=== PATIENT | male | born 1990 | race African-American/Black ===

== ENCOUNTER 2018-06-14 07:30 | Emergency (ER) | payer MEDICAID ==
[~2018-06-14] VITALS: Ht 185.4 cm; Wt 104.5 kg
[2018-06-14 07:51] LABS: BASOPHILS # (AUTO) 0.03 x10^3/uL (0-0.1); BASOPHILS % (AUTO) 0 % (0-1); EOSINOPHILS # (AUTO) 0.23 x10^3/uL (0-0.4); EOSINOPHILS % (AUTO) 3 % (1-7); LYMPHOCYTES % (AUTO) 16 % (22-44); MD NO; MEAN CORPUSCULAR HEMOGLOBIN 29.4 pg (27.5-34.5); MEAN CORPUSCULAR HGB CONC 33.2 g/dL (33.2-36.2); MEAN CORPUSCULAR VOLUME 88.5 fL (81-97); MEAN PLATELET VOLUME 8.4 fL (7.4-10.4); MONOCYTES # (AUTO) 0.54 x10^3/uL (0.2-0.8); MONOCYTES % (AUTO) 6 % (2-9); NEUTROPHILS # (AUTO) 6.85 x10^3/uL (1.8-6.8); NEUTROPHILS % (AUTO) 76 % (42-75); PLATELET COUNT 332 x10^3/uL (130-400); RED BLOOD COUNT 4.99 x10^6/uL (4.38-5.82); RED CELL DISTRIBUTION WIDTH 13.4 % (9.4-14.8)
[2018-06-14] MEDS ORDERED: FAMOTIDINE 20 MG/2 ML IVP ONE (08:00)
[2018-06-14] MEDS ORDERED: ONDANSETRON 2MG/ML, 2ML IVPush ONE (08:00)
[2018-06-14] MEDS ORDERED: SODIUM CHLORIDE 0.9% 1,000ML IVBOLUS ONE (08:00)
[2018-06-14] MEDS ORDERED: FAMOTIDINE 20 MG/2 ML ONE (08:01)
[2018-06-14] MEDS ORDERED: MORPHINE SULFATE 4 MG/ML, 1ML ONE ×2 (08:01→09:32)
[2018-06-14 08:02] LABS: ALANINE AMINOTRANSFERASE 47 U/L (12-78); ALBUMIN 3.8 g/dL (3.4-5.0); ANION GAP 8 mmol/L (5-15); CALCIUM 8.8 mg/dL (8.5-10.1); CHLORIDE 110 mmol/L (98-107); CREATININE 0.83 mg/dL (0.7-1.3)
[2018-06-14 08:04] LABS: ALKALINE PHOSPHATASE 77 U/L (45-117); BILIRUBIN,TOTAL 0.3 mg/dL (0.2-1.0); TOTAL PROTEIN 7.2 g/dL (6.4-8.2)
[2018-06-14] MEDS: MORPHINE SULFATE 4 MG/ML, 1ML IVPush PRN ×2 (08:04→09:33)
[2018-06-14] MEDS ORDERED: ONDANSETRON 2MG/ML, 2ML ONE (08:12)
[2018-06-14 08:44] LABS: CLOSTRIDIUM DIFFICILE ANTIGEN NEGATIVE; CLOSTRIDIUM DIFFICILE TOXIN NEGATIVE (Negative)
[2018-06-14 09:35] VITALS: BP 122/61
--- NOTE | 2018-06-14 09:35 | NUR ---
URINE COLLECTED AND SENT TO LAB. PT MED NOTED FOR ABD PAIN 11/29. PT AWARE OF PLAN FOR ABD CT. CALL LIGHT W/I REACH
[2018-06-14 09:38] LABS: MICROSCOPIC NOT IND
[2018-06-14 09:42] LABS: CULTURE INDICATED? NO
[2018-06-14] MEDS ORDERED: OMNIPAQUE 350 MG/ML, 100ML BOTTLE ONE (09:57)
--- NOTE | 2018-06-14 11:31 | NUR ---
Patient/Caregiver given discharge instructions and they have confirmed that they understand the instructions. Patient ambulatory with steady gait.
== END 2018-06-14 11:33 | disposition home or self-care (01) ==
LOC: ED 11:15
DX: A08.4 Viral intestinal infection, unspecified (principal)
CPT/HCPCS: 36415; 74177; 80053; 81003; 83690; 85025; 87324; 89055; 96361; 96374; 96375; 96376; 99284; J2405; J3490; J7030; Q9967

== ENCOUNTER 2018-07-03 09:30 | Emergency (ER) | payer MEDICAID ==
[~2018-07-03] VITALS: Ht 185.4 cm; Wt 97.6 kg
[2018-07-03 09:43] VITALS: BP 103/58
[2018-07-03] MEDS ORDERED: HYDROcodone/APAP 5/325 TABLET PO ONE (10:00)
[2018-07-03] MEDS ORDERED: HYDROcodone/APAP 5/325 TABLET ONE (10:06)
--- NOTE | 2018-07-03 11:15 | NUR ---
Patient/Caregiver given discharge instructions and they have confirmed that they understand the instructions. Patient ambulatory with steady gait.
== END 2018-07-03 11:18 | disposition home or self-care (01) ==
LOC: ED 10:27
DX: K08.89 Other specified disorders of teeth and supporting structures (principal); F17.200 Nicotine dependence, unspecified, uncomplicated
CPT/HCPCS: 99283

== ENCOUNTER 2018-08-14 07:13 | Emergency (ER) | payer MEDICAID ==
[~2018-08-14] VITALS: Ht 188 cm; Wt 97.4 kg
[2018-08-14 07:16] VITALS: BP 140/89
[2018-08-14] MEDS ORDERED: IBUPROFEN 800 MG TABLET PO ONE (07:30)
[2018-08-14] MEDS ORDERED: HYDROcodone/APAP 5/325 TABLET PO ONE (07:30)
[2018-08-14] MEDS ORDERED: IBUPROFEN 800 MG TABLET ONE (07:54)
[2018-08-14] MEDS ORDERED: HYDROcodone/APAP 5/325 TABLET ONE (07:54)
--- NOTE | 2018-08-14 08:05 | NUR ---
Patient/Caregiver given discharge instructions and they have confirmed that they understand the instructions. Patient ambulatory with steady gait.
== END 2018-08-14 08:06 | disposition home or self-care (01) ==
LOC: ED 07:40
DX: K02.9 Dental caries, unspecified (principal)
CPT/HCPCS: 99283

== ENCOUNTER 2018-10-18 04:10 | Emergency (ER) | payer MEDICAID ==
[~2018-10-18] VITALS: Ht 182.9 cm; Wt 97.9 kg
[2018-10-18] MEDS ORDERED: DIPHENHYDRAMINE 50 MG/ML, 1ML ONE (04:50)
[2018-10-18] MEDS ORDERED: PROCHLORPERAZINE 5 MG/ML, 2ML ONE (04:50)
[2018-10-18] MEDS ORDERED: SODIUM CHLORIDE FLUSH 10ML SYR IVF ONE (05:00)
[2018-10-18] MEDS ORDERED: SODIUM CHLORIDE 0.9% 1,000ML IVBOLUS ONE (05:00)
[2018-10-18] MEDS ORDERED: DIPHENHYDRAMINE 50 MG/ML, 1ML IVPush ONE (05:00)
[2018-10-18] MEDS ORDERED: PROCHLORPERAZINE 5 MG/ML, 2ML IVPush ONE (05:00)
--- NOTE | 2018-10-18 05:10 | NUR ---
CARE DELAYED DUE TO PT BEING DIFFICULT TO OBTAIN IV ACCESS ON. LAB AT [facility] WITH MULTIPLE ATTEMPTS WELL. PROVIDER AWARE.
--- NOTE | 2018-10-18 05:21 | NUR ---
IV ESTABLISHED VIA US. 18 G IN LEFT UPPER ARM. PT MEDICATED PER EMAR. 5 RIGHTS ADDRESSED
[2018-10-18 05:44] LABS: BASOPHILS # (AUTO) 0.04 x10^3/uL (0-0.1); BASOPHILS % (AUTO) 0 % (0-1); EOSINOPHILS # (AUTO) 0.18 x10^3/uL (0-0.4); EOSINOPHILS % (AUTO) 2 % (1-7); LYMPHOCYTES # (AUTO) 2.33 x10^3/uL (1-3.4); LYMPHOCYTES % (AUTO) 25 % (22-44); MD NO; MEAN CORPUSCULAR HEMOGLOBIN 30.4 pg (27.5-34.5); MEAN CORPUSCULAR HGB CONC 33.5 g/dL (33.2-36.2); MEAN CORPUSCULAR VOLUME 90.6 fL (81-97); MEAN PLATELET VOLUME 8.5 fL (7.4-10.4); MONOCYTES # (AUTO) 0.53 x10^3/uL (0.2-0.8); MONOCYTES % (AUTO) 6 % (2-9); NEUTROPHILS # (AUTO) 6.42 x10^3/uL (1.8-6.8); NEUTROPHILS % (AUTO) 68 % (42-75); PLATELET COUNT 333 x10^3/uL (130-400); RED BLOOD COUNT 4.83 x10^6/uL (4.38-5.82); RED CELL DISTRIBUTION WIDTH 13.8 % (9.4-14.8)
--- NOTE | 2018-10-18 05:45 | NUR ---
PT BACK FROM CT
[2018-10-18 05:50] LABS: ANION GAP 10 mmol/L (5-15); CALCIUM 8.4 mg/dL (8.5-10.1); CHLORIDE 112 mmol/L (98-107)
[2018-10-18 05:54] LABS: ALANINE AMINOTRANSFERASE 56 U/L (12-78); ALKALINE PHOSPHATASE 78 U/L (45-117); BILIRUBIN,TOTAL 0.7 mg/dL (0.2-1.0); CREATININE 0.84 mg/dL (0.7-1.3); TOTAL PROTEIN 7.1 g/dL (6.4-8.2)
--- NOTE | 2018-10-18 06:17 | NUR ---
PT SLEEPING. RESPIRATIONS EVEN AND UNLABORED. VITALS STABLE. CT READ BACK. CHART UP FOR RECHECK.
[2018-10-18] MEDS ORDERED: KETOROLAC 30 MG/1 ML IVPush ONE (06:30)
[2018-10-18] MEDS ORDERED: HYDROmorphone 1 MG/ML, 1ML INJ IVPush ONE (07:00)
--- NOTE | 2018-10-18 07:01 | NUR ---
BEDSIDE REPORT TO FAVIAN RN.
--- NOTE | 2018-10-18 07:04 | NUR ---
PT. IS A & O X 4, RESTING SIDE LYING ON THE STRETCHER. PT. HAS THE PULSE OX AND BP CUFF IN PLACE. PT. HAS NO CONCERNS AT THIS TIME. SIDERAILS REMAIN UP X 2 WITH THE CALL LIGHT IN PLACE. VSS.
[2018-10-18] MEDS ORDERED: KETOROLAC 30 MG/1 ML ONE (07:34)
[2018-10-18] MEDS ORDERED: HYDROmorphone 2 MG/ML, 1ML ONE (07:34)
--- NOTE | 2018-10-18 08:00 | NUR ---
PT. WAS MEDICATED FOR PAIN. PT. IS RESTING AT THIS TIME. PULSE OX AND BP CUFF REMAIN IN PLACE.
--- NOTE | 2018-10-18 09:50 | NUR ---
PT. STATES RELIEF FROM PAIN MEDS. PT. WAS GIVEN DISCHARGE INSTRUCTIONS AND SCRIPTS WITH UNDERSTANDING VERBALIZED ALONG WITH WILLINGNESS TO COMPLY. PT.'S IV WAS DCD',CATH TIP INTACT. PRESSURE HELD WITH HEMOSTASIS ACHIEVED. PT. WAS AMBULATORY TO THE DISCHARGE DESK. VSS.
[2018-10-18 09:54] VITALS: BP 116/62
== END 2018-10-18 09:57 | disposition home or self-care (01) ==
LOC: ED 09:51
DX: R51 Headache (principal); J45.909 Unspecified asthma, uncomplicated
CPT/HCPCS: 36415; 70450; 80053; 85025; 96361; 96374; 96375; 99284; J0780; J1170; J1200; J1885; J7030

== ENCOUNTER 2018-10-19 06:26 | Emergency (ER) | payer MEDICAID ==
[~2018-10-19] VITALS: Ht 185.4 cm; Wt 98.5 kg
[2018-10-19] MEDS ORDERED: ONDANSETRON 2MG/ML, 2ML IVPush ONE (07:00)
[2018-10-19] MEDS ORDERED: SODIUM CHLORIDE FLUSH 10ML SYR IVF ONE (07:00)
[2018-10-19] MEDS ORDERED: HYDROmorphone 2 MG/ML, 1ML ONE ×2 (07:22→10:36)
[2018-10-19] MEDS ORDERED: ONDANSETRON 2MG/ML, 2ML ONE (07:23)
--- NOTE | 2018-10-19 07:24 | NUR ---
pt reports ARMAS, n/v, diarrhea for 2 day. pain 10/10 in his head and stomach.
[2018-10-19] MEDS: HYDROmorphone 2 MG/ML, 1ML IVPush PRN ×2 (07:27→10:40)
[2018-10-19 07:39] LABS: BASOPHILS # (AUTO) 0.02 x10^3/uL (0-0.1); BASOPHILS % (AUTO) 0 % (0-1); EOSINOPHILS # (AUTO) 0.13 x10^3/uL (0-0.4); EOSINOPHILS % (AUTO) 1 % (1-7); LYMPHOCYTES % (AUTO) 14 % (22-44); MD NO; MEAN CORPUSCULAR HEMOGLOBIN 29.7 pg (27.5-34.5); MEAN CORPUSCULAR HGB CONC 32.8 g/dL (33.2-36.2); MEAN CORPUSCULAR VOLUME 90.7 fL (81-97); MEAN PLATELET VOLUME 8.1 fL (7.4-10.4); MONOCYTES # (AUTO) 0.48 x10^3/uL (0.2-0.8); MONOCYTES % (AUTO) 5 % (2-9); NEUTROPHILS % (AUTO) 79 % (42-75); PLATELET COUNT 331 x10^3/uL (130-400); RED BLOOD COUNT 4.71 x10^6/uL (4.38-5.82); RED CELL DISTRIBUTION WIDTH 13.7 % (9.4-14.8)
[2018-10-19 07:52] LABS: ALANINE AMINOTRANSFERASE 67 U/L (12-78); ANION GAP 8 mmol/L (5-15); CALCIUM 8.8 mg/dL (8.5-10.1); CHLORIDE 107 mmol/L (98-107); CREATININE 0.83 mg/dL (0.7-1.3)
[2018-10-19 07:54] LABS: ALKALINE PHOSPHATASE 77 U/L (45-117); BILIRUBIN,TOTAL 0.8 mg/dL (0.2-1.0); TOTAL PROTEIN 7.2 g/dL (6.4-8.2)
--- NOTE | 2018-10-19 08:05 | NUR ---
pt reports pain has improved in is head to 6/10. pt provided a stool and urine sample. pt resting on gurney. blanket provided. no other requests at this time.
[2018-10-19 08:13] VITALS: BP_DIAS 71
[2018-10-19 08:34] LABS: MICROSCOPIC INDICATED
[2018-10-19 08:50] LABS: CULTURE INDICATED? YES
[2018-10-19 09:05] LABS: CLOSTRIDIUM DIFFICILE ANTIGEN NEGATIVE; CLOSTRIDIUM DIFFICILE TOXIN NEGATIVE (Negative)
--- NOTE | 2018-10-19 10:10 | NUR ---
BS REPORT FROM [facility], ASSUME CARE OF PT AT THIS TIME. CDIFF NEG, ISOLATION CART REMOVED. ERP IN TO REASSESS/DISPO.
[2018-10-19] MEDS ORDERED: HYDROcodone/APAP 5/325 TABLET PO ONE (10:30)
[2018-10-19] MEDS ORDERED: HYDROcodone/APAP 5/325 TABLET ONE (10:35)
--- NOTE | 2018-10-19 10:44 | NUR ---
PT MEDICATED PER ERP ORDER PRIOR TO DISCHARGE FOR 11/29. PT WITH RIDE HOME, AMBULATES OUT WITH STEADY GAIT.
[2018-10-19 10:56] VITALS: BP_SYST 113
== END 2018-10-19 10:58 | disposition home or self-care (01) ==
LOC: ED 08:23
DX: R31.29 Other microscopic hematuria (principal); K52.9 Noninfective gastroenteritis and colitis, unspecified
CPT/HCPCS: 36415; 80053; 81001; 85025; 87086; 87324; 89055; 96374; 96375; 96376; 99283; J1170; J2405

== ENCOUNTER 2018-11-23 18:08 | Emergency (ER) | payer MEDICAID ==
[~2018-11-23] VITALS: Ht 188 cm; Wt 97.0 kg
[2018-11-23 18:23] VITALS: BP 132/54
[2018-11-23 18:46] LABS: MEAN CORPUSCULAR HEMOGLOBIN 30.3 pg (27.5-34.5); MEAN CORPUSCULAR HGB CONC 33.2 g/dL (33.2-36.2); MEAN CORPUSCULAR VOLUME 91.4 fL (81-97); MEAN PLATELET VOLUME 8.1 fL (7.4-10.4); PLATELET COUNT 344 x10^3/uL (130-400); RED BLOOD COUNT 4.86 x10^6/uL (4.38-5.82); RED CELL DISTRIBUTION WIDTH 13.6 % (9.4-14.8)
[2018-11-23 18:57] LABS: ALANINE AMINOTRANSFERASE 41 U/L (12-78); ALBUMIN 4.2 g/dL (3.4-5.0); ANION GAP 12 mmol/L (5-15); CALCIUM 8.8 mg/dL (8.5-10.1); CHLORIDE 108 mmol/L (98-107); CREATININE 0.94 mg/dL (0.7-1.3)
[2018-11-23 19:02] LABS: ALKALINE PHOSPHATASE 87 U/L (45-117); BILIRUBIN,TOTAL 0.7 mg/dL (0.2-1.0); TOTAL PROTEIN 7.9 g/dL (6.4-8.2); TROPONIN I < 0.015 ng/mL (0.000-0.045)
[2018-11-23 19:06] LABS: BASOPHILS # (AUTO) 0.04 x10^3/uL (0-0.1); BASOPHILS % (AUTO) 0 % (0-1); EOSINOPHILS # (AUTO) 0.12 x10^3/uL (0-0.4); EOSINOPHILS % (AUTO) 1 % (1-7); LYMPHOCYTES % (AUTO) 20 % (22-44); MD SCAN; MONOCYTES # (AUTO) 0.45 x10^3/uL (0.2-0.8); MONOCYTES % (AUTO) 5 % (2-9); NEUTROPHILS # (AUTO) 7.25 x10^3/uL (1.8-6.8); NEUTROPHILS % (AUTO) 74 % (42-75)
--- NOTE | 2018-11-23 19:36 | NUR ---
CALLED FROM [facility], NO ANSWER X1
--- NOTE | 2018-11-23 19:46 | NUR ---
NAX2
== END 2018-11-23 19:59 | disposition left against medical advice (07) ==
LOC: ED 19:48
DX: R07.9 Chest pain, unspecified (principal); R11.10 Vomiting, unspecified; R10.10 Upper abdominal pain, unspecified
CPT/HCPCS: 36415; 71045; 80053; 83690; 84484; 85025; 93005; 99284

== ENCOUNTER 2019-04-14 19:49 | Emergency (ER) | payer MEDICAID ==
[~2019-04-14] VITALS: Ht 185.4 cm; Wt 85.6 kg
--- NOTE | 2019-04-14 20:03 | NUR ---
PT C/O BLOODY URINE, TESTICULAR PAIN, AND LEFT EYE BLURRINES X2 WEEKS. CONNECTED TO MONITORING. CALL LIGHT IN REACH. MD AT BEDSIDE. AWAITING ORDERS AT THIS TIME.
[2019-04-14] MEDS ORDERED: FLUORESCEIN OPHTHALMIC 1 MG STRIP ONE (20:12)
[2019-04-14] MEDS ORDERED: PROPARACAINE OPHTH 0.5%, 15ML ONE (20:13)
--- NOTE | 2019-04-14 20:18 | NUR ---
PT AMBULATED TO RESTROOM WITH STEADY GAIT TO PROVIDE A URINE SAMPLE. PT STATES HE IS UNABLE TO URINATE AT THIS TIME.
[2019-04-14] MEDS ORDERED: FLUORESCEIN/BENOXINATE 5 ML DROPS OP ONE (20:30)
[2019-04-14] MEDS ORDERED: PROPARACAINE OPHTH 0.5%, 15ML EACHEYE ONE (20:30)
--- NOTE | 2019-04-14 20:43 | NUR ---
PT STATES HE CANNOT PROVIDE A URINE SAMPLE YET. HE URINATED JUST BEFORE HE GOT HERE.
--- NOTE | 2019-04-14 20:58 | NUR ---
GAVE PT WATER TO FACILITATE URINATION, OK PER MD. PT STARTED DRINKING WATER AND REMINDED NEED FOR URINE SAMPLE.
[2019-04-14 21:09] VITALS: BP 121/72
--- NOTE | 2019-04-14 21:10 | NUR ---
PT STATES HE STILL CANNOT URINATE AT THIS TIME. PT DRANK THREE CUPS OF WATER, AND HE WAS BROUGHT MORE. PT AWARE THIS IS LAST TEST NEEDED.
--- NOTE | 2019-04-14 21:30 | NUR ---
PT PROVIDED URINE SAMPLE. UA COLLECTED AND SENT TO LAB.
[2019-04-14 21:43] LABS: MICROSCOPIC AUTO
[2019-04-14 21:46] LABS: CULTURE INDICATED? NO
--- NOTE | 2019-04-14 21:47 | NUR ---
ALL RESULTS ARE BACK AT THIS TIME. CHART UP FOR RECHECK.
== END 2019-04-14 22:06 | disposition home or self-care (01) ==
LOC: ED 20:39
DX: R31.29 Other microscopic hematuria (principal); I86.1 Scrotal varices; H54.7 Unspecified visual loss; J45.909 Unspecified asthma, uncomplicated
CPT/HCPCS: 76870; 81001; 99284